=== PATIENT | female | born 1995 | race Caucasian/White ===

== ENCOUNTER 2019-05-15 05:40 | Day surgery (SDC) | payer OTHER ==
[2019-05-15] MEDS ORDERED: FENTAnyl 50 MCG/ML VIAL (08:14)
[2019-05-15] MEDS ORDERED: MIDAZOLAM 1 MG/ML 2 ML INJ (08:14)
== END 2019-05-15 10:44 | disposition home or self-care (01) ==
LOC: GIL 05:40
DX: K44.9 Diaphragmatic hernia without obstruction or gangrene (principal); K21.9 Gastro-esophageal reflux disease without esophagitis
CPT/HCPCS: 43239; 84703; 88305